=== PATIENT | male | born 1960 | race Caucasian/White ===

== ENCOUNTER 2020-03-28 16:43 | Outpatient (CLI) | payer OTHER, SELFPAY ==
--- NOTE | ~2020-03-28 | XR_ITS ---
EXAMINATION: XR shoulder RT min 2V EXAM DATE: 03/28/2020 17:15 INDICATION: Initial encounter following injury, with pain of the right shoulder. TECHNIQUE: The following right shoulder projections obtained: frontal projection with internal rotati on, frontal projection with external rotation, Grashey, and scapular Y view (4+ views). There is no prior study for comparison. FINDINGS: No evidence of right shoulder rotator cuff calcific tendinosis. There is mild glenohumera l joint primary osteoarthritis. There are no acute fractures or dislocations identified. There is no subcutaneous gas. The soft tissue is unremarkable. There are no radiopaque foreign bodies. IMPRESSION: 1. XR shoulder RT min 2V exam without acute osseous findings. 2. Mild glenohumeral osteoarthritis. Reviewed, dictated and finalized at location A.
--- NOTE | ~2020-03-28 | XR_ITS ---
EXAMINATION: XR elbow RT 2V EXAM DATE: 03/28/2020 17:15 INDICATION: Initial encounter following injury, with pain of the right elbow. TECHNIQUE: Frontal and lateral projections of the right elbow. There is no prior study for comparis on. FINDINGS: There is probably an right elbow joint effusion or hemarthrosis. There is possible acute n ondisplaced fracture through the radial neck. Closed, posttraumatic fracture if real. This fracture t ype can sometimes be better visualized on a forearm exam, or complete right elbow exam. IMPRESSION: 1. Right elbow joint effusion/hemarthrosis. 2. Possible nondisplaced radial neck fracture. Does patient have pain with pronation and supination? Reviewed, dictated and finalized at location A. IMPRESSION: 1. Right elbow joint effusion/hemarthrosis. 2. Possible nondisplaced radial neck fracture. Does patient have pain with pron ation and supination?
== END 2020-03-28 16:44 | disposition home or self-care (01) ==
LOC: ANHIMG 16:52
PROVIDERS: PCP Internal Medicine; Visit Provider Internal Medicine
DX: S49.91XA Unspecified injury of right shoulder and upper arm, initial encounter (principal); S59.901A Unspecified injury of right elbow, initial encounter; W19.XXXA Unspecified fall, initial encounter; M25.421 Effusion, right elbow; R93.6 Abnormal findings on diagnostic imaging of limbs; M19.011 Primary osteoarthritis, right shoulder
CPT/HCPCS: 73030; 73070

== ENCOUNTER 2022-05-07 01:14 | Day surgery (SDC) | payer BC, SELFPAY ==
[2022-05-02 10:25] VITALS: BMI 25.7
--- NOTE | 2022-05-07 12:13 | WPDGICN ---
Assessment and Plan Assessment and plan (1) Encounter for screening colonoscopy: Code(s): Z12.11 - Encounter for screening for malignant neoplasm of colon Status: Acute Assessment and Plan: Patient presents for screening colonoscopy. He appears to be at average risk for colon polyps. Further recommendations will be given after endoscopy. GI Consult Note Consult date/time: 05/07/22 12:13 Reason for consult: Neoplasia screening. HPI: Nadir Weston is a 62 year old male Presents for screening colonoscopy. Patient's current weight appetite bowel movements appeared normal. Patient has had no bleeding. Family history is noncontributory. He presents today for neoplasia screening colonoscopy. Review of Systems Review of Systems: Review of systems noncontributory. PMFSH Social History Social History Smoking status: Never smoker Alcohol intake: current Alcohol use details: rare occasions Substance use: never Substance use type: does not use Living arrangements: with family Spiritual care concerns: No Meds Home Medications and Allergies Home Medications Medication Instructions Recorded Confirmed Type sodium sul 1.479 gram-potas ch See Rx Instructions PO PER PKG DIR 04/26/22 05/02/22 Rx 0.188 gram-magnes sul 0.225 gram #24 tabs tablet (Sutab) losartan 25 mg tablet 25 tablet PO DAILY 05/02/22 05/02/22 History Allergies Allergy/AdvReac Type Severity Reaction Status Date / Time No Known Allergies Allergy Verified 05/02/22 10:35 Exam Narrative: Phys physical exam reveals patient to be alert. Vital signs stable. HEENT exam is unremarkable. Patient is anicteric. Lungs are clear to auscultation and percussion. Heart is without murmur or extra sounds. Abdominal exam bowel sounds are present soft nontender with no organomegaly. Digital external rectal exam is normal.
[2022-05-07 12:20] VITALS: BP 140/82; PULSE 64; RESP 18; TEMP 36.8; O2SAT 98
--- NOTE | 2022-05-07 12:22 | P.PNAN_ITS ---
Anes - Initial Pre Proc Eval Procedure: Operation Date: 05/07/22 13:30 Proposed Procedures p Screening Colonoscopy - Chad Cunningham MD Date/Time: 05/07/22 12:22 Surgeon: Chad Cunningham MD Pre Op Diagnosis: neoplasm screening Patient Data Age: 62 Gender: M Height: 1.85 m Weight: 88.6 kg Allergies Allergy/AdvReac Type Severity Reaction Status Date / Time No Known Allergies Allergy Verified 05/07/22 12:19 Home Medications Medication Instructions Recorded Confirmed Type losartan 25 mg tablet 25 tablet PO DAILY 05/02/22 05/02/22 History Patient hx anesthesia problems: none Family hx anesthesia problems: none Results Review: All pre-operative results and documents have been reviewed as part of the pre- operative evaluation. [facility] Past Medical History Medical History (Updated 05/07/22 @ 12:23 by Geo Yusuf MD) HTN (hypertension) Social History Social History Smoking status: Never smoker Alcohol intake: current Alcohol use details: rare occasions Substance use: never Substance use type: does not use Living arrangements: with family Spiritual care concerns: No Anes - Eval Final PreProcedure Day of Procedure 05/07/22 12:22 Patient weight: normal Heart: regular rate and rhythm Lungs: clear to auscultation and normal air movement Airway: Mallampati scale class II Neurological: alert and oriented Last oral intake: >/= 8 hours ASA classification: II Emergent: no Anesthetic plan: proceed Anesthesia type and monitoring: general GIVS Results Review: All pre-operative results and documents have been reviewed as part of the pre- operative evaluation. Informed Consent: The patient's anesthetic plan and its attendant risks and benefits were discussed with the patient/family/POA. Questions were solicited and answers provided to the satisfaction of the patient/family/POA.
[2022-05-07] MEDS: LACTATED RINGERS 1,000 ML 150 ML IV CONT (12:29)
--- NOTE | 2022-05-07 13:06 | SUR.OPER ---
RN verified collection of ascending colon polyp and sigmoid colon polyp with Dr. Cunningham
[2022-05-07 13:07] VITALS: BP 121/80; PULSE 58; RESP 16; O2SAT 96
[2022-05-07 13:17] VITALS: BP 132/84; PULSE 48; RESP 13; O2SAT 96
[2022-05-07 13:27] VITALS: BP 145/87; PULSE 48; RESP 18; O2SAT 97
== END 2022-05-07 13:34 | disposition home or self-care (01) ==
PROVIDERS: PCP Internal Medicine; Visit Provider Internal Medicine Gastroenterology
PROC: 0DJD8ZZ Inspection of Lower Intestinal Tract, Via Natural or Artificial Opening Endoscopic (ICD-10-PCS; CPT 45378; principal; 2022-05-07 13:30)
DX: Z12.11 Encounter for screening for malignant neoplasm of colon (principal); D12.2 Benign neoplasm of ascending colon; K63.5 Polyp of colon; K57.30 Diverticulosis of large intestine without perforation or abscess without bleeding; K64.8 Other hemorrhoids; I10 Essential (primary) hypertension
CPT/HCPCS: 45385; 88305; J2704; J7120

== ENCOUNTER 2023-05-30 02:08 | Day surgery (SDC) | payer MEDICARE, SELFPAY ==
[2023-05-17 10:20] VITALS: BMI 27.1
[2023-05-30 09:10] VITALS: BP 120/83; PULSE 62; RESP 20; TEMP 36.4; O2SAT 98; BMI 27.9
[2023-05-30] MEDS: LACTATED RINGERS 1,000 ML 150 ML IV CONT (09:16)
--- NOTE | 2023-05-30 09:43 | P.PNAN_ITS ---
Anes - Initial Pre Proc Eval Procedure: Operation Date: 05/30/23 10:00 Proposed Procedures p Esophagogastroduodenoscopy - Chad Cunningham MD Date/Time: 05/30/23 09:43 Surgeon: Chad Cunningham MD Pre Op Diagnosis: dysphagia Patient Data Age: 63 Gender: M Height: 1.83 m Weight: 93.4 kg Last Vital Signs Temp 97.6 F 05/30/23 09:10 Pulse 62 05/30/23 09:10 Resp 20 05/30/23 09:10 BP 120/83 05/30/23 09:10 Pulse Ox 98 05/30/23 09:10 O2 Del Method Room Air 05/30/23 09:10 Allergies Allergy/AdvReac Type Severity Reaction Status Date / Time No Known Allergies Allergy Verified 05/30/23 09:10 Home Medications Medication Instructions Recorded Confirmed Type losartan 25 mg tablet 25 tablet PO DAILY 05/02/22 05/17/23 History Patient hx anesthesia problems: none Family hx anesthesia problems: none Results Review: All pre-operative results and documents have been reviewed as part of the pre- operative evaluation. [facility] Past Medical History Medical History (Updated 05/07/22 @ 12:23 by Geo Yusuf MD) HTN (hypertension) Social History Social History Smoking status: Never smoker Alcohol intake: current Drinks per week: 1 Alcohol use details: rare occasions Substance use: never Substance use type: does not use Living arrangements: with family Spiritual care concerns: No Anes - Eval Final PreProcedure Day of Procedure 05/30/23 09:43 Patient weight: normal Heart: regular rate and rhythm Lungs: clear to auscultation Airway: Mallampati scale class II Neurological: alert and oriented Last oral intake: >/= 8 hours ASA classification: II Emergent: no Anesthetic plan: proceed Anesthesia type and monitoring: general GIVS and standard monitoring Results Review: All pre-operative results and documents have been reviewed as part of the pre- operative evaluation. Informed Consent: The patient's anesthetic plan and its attendant risks and benefits were discu ssed with the patient/family/POA. Questions were solicited and answers provided to the satisfaction of the patient/family/POA.
--- NOTE | 2023-05-30 10:05 | P.HP_ITS ---
History of Present Illness History of Present Illness Consent: Risks, benefits, and alternatives have been discussed and questions answered. Patient agrees to proceed with procedure. Chief complaint: dysphagia Narrative: Nadir Weston is a 63 year old male Presents for EGD. Intermittently over last several years patient has noted food catching the mid substernal portion the chest. He is unable eat or swallow until this passes. States it happens with salty foods such as [place] food. He denies any heartburn. He has no other pain. He has had no weight loss or bleeding. Family history noncontributory. Review of Systems Review of Systems: Review of systems noncontributory. [facility] Past Medical History Medical History (Updated 05/30/23 @ 10:07 by Chad Cunningham MD) HTN (hypertension) Social History Social History Smoking status: Never smoker Alcohol intake: current Drinks per week: 1 Alcohol use details: rare occasions Substance use: never Substance use type: does not use Living arrangements: with family Spiritual care concerns: No Meds Home Medications and Allergies Home Medications Medication Instructions Recorded Confirmed Type losartan 25 mg tablet 25 tablet PO DAILY 05/02/22 05/17/23 History Allergies Allergy/AdvReac Type Severity Reaction Status Date / Time No Known Allergies Allergy Verified 05/30/23 09:10 Vital Signs Vital Signs - 24 hr 05/30/23 09:10 Temperature 97.6 F Pulse Rate 62 Respiratory Rate 20 Blood Pressure 120/83 Pulse Oximetry 98 Oxygen Delivery Room Air Exam Narrative: Physical exam reveals patient to be alert. Vital signs stable. HEENT exam is unremarkable. Patient is anicteric. Lungs are clear. Heart without murmur. Abdomen bowel sounds are present soft nontender with no organomegaly. Assessment and Plan Assessment and plan (1) Dysphagia: Code(s): R13.10 - Dysphagia, unspecified Status: Acute Assessment and Plan: patient with dysphagia suspicious for esophageal narrowing. Plan for EGD to assess more thoroughly. He may require dilatation. Further recommendations may be given after endoscopy
[2023-05-30 11:07] VITALS: BP 101/70; PULSE 52; RESP 16; O2SAT 98
[2023-05-30 11:17] VITALS: BP 111/75; PULSE 50; RESP 18; O2SAT 97
[2023-05-30 11:27] VITALS: BP 137/80; PULSE 48; RESP 18; O2SAT 99
== END 2023-05-30 11:32 | disposition home or self-care (01) ==
PROVIDERS: PCP Internal Medicine; Visit Provider Internal Medicine Gastroenterology
PROC: 0DJ08ZZ Inspection of Upper Intestinal Tract, Via Natural or Artificial Opening Endoscopic (ICD-10-PCS; CPT 43235; principal; 2023-05-30 10:00)
DX: Q39.4 Esophageal web (principal); K21.00 Gastro-esophageal reflux disease with esophagitis, without bleeding; I10 Essential (primary) hypertension
CPT/HCPCS: 43450; 43235; J2704; J7120

== ENCOUNTER → 2023-07-24 09:51 | Outpatient (CLI) | payer MEDICARE, SELFPAY ==
--- NOTE | ~2023-07-24 | CT_ITS ---
EXAMINATION: CT pelvis wo con DATE: 07/24/2023 10:09 INDICATION: TECHNIQUE: Computed tomography (CT) of the pelvis was performed without intravenous contrast. Automat ed exposure control and iterative reconstruction technique were employed. The dose-length product was 572.63 mGy-cm. COMPARISON: None FINDINGS: Atherosclerotic arterial calcification. Normal appendix. Diverticulosis. Prostatomegaly. Bl adder wall thickening, likely due to outlet obstruction. Mild degenerative change in the bilateral hi ps and pubic symphysis. Normal SI joints. Mild degenerative disc disease in the lower lumbar spine. N o inguinal hernia. IMPRESSION: No abnormality detected in the pelvic musculature. MR of the pelvis without contrast may be helpful g iven its superior soft tissue resolution. Mild lumbar degenerative disc disease. Mild bilateral hip osteoarthritis. Prostatomegaly with likely urinary outlet obstruction. Reviewed, dictated and finalized at [facility]. IMPRESSION: No abnormality detected in the pelvic musculature. MR of the pelvis without con trast may be helpful given its superior soft tissue resolution. Mild lumbar degenerative disc disease. Mild bilateral hip osteoarthritis. Prostatomegaly with likely urinary outlet obstruction.
== END ==
PROVIDERS: PCP Internal Medicine; Visit Provider Internal Medicine
DX: S76.011A Strain of muscle, fascia and tendon of right hip, initial encounter (principal); X58.XXXA Exposure to other specified factors, initial encounter; M51.36 Other intervertebral disc degeneration, lumbar region; N40.0 Benign prostatic hyperplasia without lower urinary tract symptoms
CPT/HCPCS: 72192